=== PATIENT | male | born 2000 | race Caucasian/White ===

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

== ENCOUNTER 2021-03-05 16:16 | Emergency (ER) | payer BC ==
[~2021-03-05] VITALS: Ht 175.3 cm; Wt 100.0 kg
[2021-03-05 16:50] VITALS: BP 124/79; TEMP 98.8
[2021-03-05 18:05] VITALS: PULSE 78
== END 2021-03-05 18:05 | disposition home or self-care (01) ==
LOC: COL.ER 16:16
DX: S61.210A Laceration without foreign body of right index finger without damage to nail, initial encounter (principal); Z23 Encounter for immunization; W25.XXXA Contact with sharp glass, initial encounter